=== PATIENT | male | born 1965 | race Caucasian/White ===

== ENCOUNTER 2017-08-22 17:49 | Emergency (ER) | payer SELFPAY ==
[~2017-08-22] VITALS: Ht 182.9 cm; Wt 66.0 kg
[2017-08-22] MEDS ORDERED: VALIUM5 MG PO (19:35)
[2017-08-22] MEDS ORDERED: NORCO 5/3251 TABLET PO (19:35)
[2017-08-22 19:46] VITALS: BP 136/80
== END 2017-08-22 19:52 | disposition home or self-care (01) ==
LOC: EXP 17:49 → EME 17:49 → EXP 19:52
DX: M48.56XA Collapsed vertebra, not elsewhere classified, lumbar region, initial encounter for fracture (principal); W20.8XXA Other cause of strike by thrown, projected or falling object, initial encounter; F17.200 Nicotine dependence, unspecified, uncomplicated; Z87.39 Personal history of other diseases of the musculoskeletal system and connective tissue
CPT/HCPCS: 72070; 72100; 99281; 99284

== ENCOUNTER 2017-08-27 06:41 | Emergency (ER) | payer SELFPAY ==
[~2017-08-27] VITALS: Ht 180.3 cm; Wt 75.0 kg
[~2017-08-27 06:41] MED LIST: NORCO 5/3251 TABLET PO; VALIUM5 MG PO
[2017-08-27] MEDS ORDERED: OXYCODONE HCL5 MG PO (09:48)
[2017-08-27 10:30] VITALS: BP 121/76
== END 2017-08-27 10:30 | disposition home or self-care (01) ==
LOC: EME 06:41
DX: S32.020D Wedge compression fracture of second lumbar vertebra, subsequent encounter for fracture with routine healing (principal); F17.200 Nicotine dependence, unspecified, uncomplicated; Z88.6 Allergy status to analgesic agent
CPT/HCPCS: 70140; 72148; 99281; 99284